=== PATIENT | female | born 1985 | race Caucasian/White ===

== ENCOUNTER 2025-01-13 19:30 | Emergency (ER) | payer MEDICAID ==
[~2025-01-13] VITALS: Ht 160 cm; Wt 56.8 kg
[2025-01-13 19:54] VITALS: BP 128/100; PULSE 90; RESP 16; O2SAT 97
[2025-01-13 22:17] LABS: MEAN PLATELET VOLUME 7.6 FL (7.4-10.4); RED CELL DISTRIBUTION WIDTH 12.7 % (11.5-14.5)
[2025-01-13 22:32] LABS: CREATININE 0.64 MG/DL (0.40-0.90); TOTAL CARBON DIOXIDE 28.3 MMOL/L (24-32); eCRCL 97 ML/MIN; eGFR > 90 ML/MIN
[2025-01-13 23:26] LABS: LEUKOCYTE ESTERASE ,URINE NEGATIVE (Neg); NITRITES, URINE NEGATIVE (Neg); OCCULT BLOOD,URINE NEGATIVE (Neg)
--- NOTE | 2025-01-13 23:31 | Physician Documentation ---
History of Present Illness ~ General Chief Complaint: Multiple Medical Complaints Stated Complaint: FLANK PAIN Time Seen by MD: 21:51 History of Present Illness Initial Comments This is a 39-year-old female who presents with multiple vague concerns primarily reporting feeling off describing anxiety about her health, difficulty focusing, and episodes of nausea. Reports these symptoms has been bothering her more the last week. Patient additionally reports she has had pain to her right flank for the past year and describes the pain as deep. Patient reports no shortness of breath, chest pain, or abdominal pain. Patient reports no other acute symptoms or concerns. Medication Reconciliation Allergies: Coded Allergies: No Known Allergies (Unverified , 01/13/25) Scheduled Celecoxib* (Celebrex*), 1 CAP PO Q12H Hydroxyzine Hcl (Atarax), 1 TAB PO Q8H Scheduled PRN ONDANSETRON ODT 4mg tablet (Ondansetron Odt), 1 TAB PO Q6H PRN PRN for nausea/vomiting Past Medical History Past Medical History: No Pertinent History Review of Systems ROS As stated above in the HPI, otherwise all systems are reviewed and negative. Physical Exam Physical Exam Vital Signs: Temperature: 98.2, Source: Oral, Heart Rate: 90, Respiratory Rate: 16, BP: 128/100, Pulse Oximetry: 97, Weight: 56.820 Oxygen Flow Rate: 0 Physical Exam VITALS: Reviewed and as above. GENERAL: Alert, nontoxic appearing, no apparent distress. HEENT: PERRLA, EOMI RESPIRATORY: No increased work of breathing, no respiratory distress, speaking in full clear sentences, clear lung sounds in all lisa CHEST: CV: Regular rate and rhythm no murmur BACK: Nontender to palpation, no CVA tenderness GI: Soft, nondistended, nontender, no rebound, no guarding, bowel sounds present SKIN: Warm and dry NEURO: GCS 15 Progress Results/Orders Results/Orders Completed Orders - JASWINDER MONTGOMERY Cbc/Diff (01/13/25 21:52) BMP (01/13/25 21:52) Urinalysis, Cult If Indicated (01/13/25 21:52) Hydroxyzine Tablet (Atarax Tablet) (01/14/25 00:20) Naproxen Tablet (Naprosyn Tablet) (01/14/25 00:20) Medications Received in ER Medications (Trade) Dose Ordered Sig/Daya Route PRN Reason Start Time Stop Time Status Last Admin Dose Admin (Atarax tablet) 25 mg ONCE ONCE PO 01/14/25 00:20 01/14/25 00:21 DC 01/14/25 00:25 25 MG (Naprosyn tablet) 500 mg ONCE ONCE PO 01/14/25 00:20 01/14/25 00:21 DC 01/14/25 00:25 500 MG Vital Signs 01/13/25 01/14/25 19:54 00:09 Temp 98.2 98.2 Pulse 90 Resp 16 B/P (MAP) 128/100 Pulse Ox 97 O2 Flow Rate 0 Laboratory Tests Test 01/13/25 22:04 01/13/25 22:15 White Blood Count 6.8 Red Blood Count 4.33 Hemoglobin 13.2 Hematocrit 38.9 Mean Corpuscular Volume 89.9 Mean Corpuscular Hemoglobin 30.4 Mean Corpuscular Hemoglobin Concent 33.8 Red Cell Distribution Width 12.7 Platelet Count 257 Mean Platelet Volume 7.6 Neutrophils (%) (Auto) 66.1 Lymphocytes (%) (Auto) 26.2 Monocytes (%) (Auto) 5.7 Eosinophils (%) (Auto) 1.3 Basophils (%) (Auto) 0.7 Neutrophils # (Auto) 4.5 Lymphocytes # (Auto) 1.8 Monocytes # (Auto) 0.4 Eosinophils # (Auto) 0.1 Basophils # (Auto) 0.0 CBC Comment Sodium Level 139 Potassium Level 4.1 Chloride Level 104 Carbon Dioxide Level 28.3 Anion Gap 7 L Blood Urea Nitrogen 16 Creatinine 0.64 Estimated GFR/1.73 m2 > 90 BUN/Creatinine Ratio 25.0 H Glucose Level 93 Calcium Level 8.9 Albumin 4.1 Chemistry Comments Urine Specimen Description Cln catch midstream Urine Color Yellow Urine Clarity Clear Urine pH 7.0 Urine Specific [place] 1.010 Urine Protein Negative Urine Glucose (UA) Negative Urine Ketones Negative Urine Occult Blood Negative Urine Nitrite Negative Urine Bilirubin Negative Urine Urobilinogen 0.2 Urine Leukocyte Esterase Negative Urine Culture Indicated Not ind Volume Urine Centrifuged 10 ml Urine Comment Medical Decision Making Additional information obtaine: N/A Findings This otherwise well 39-year-old female presented with multiple vague concerns that appear to been present for some time including a feeling of difficulty focusing, anxiety about health, and episodes of nausea along with one year of right flank pain described as deep. Patient's physical exam was benign in lab work did not demonstrate significant abnormalities to suggest a acute medical emergency. At a lengthy conversation patient about follow up with primary care provider for further workup of symptoms with the possibility of endocrine disorder or mental health disorder. All possible differentials have not been ruled out and patient is mid made aware that she must follow up with primary care provider for further workup. Patient is otherwise well-appearing, h emodynamically stable and appropriate for outpatient follow up. Patient provided careful return to care precautions, follow up instructions, and home care instructions which he verbalized understanding of. Differential Diagnosis Anxiety, pyelonephritis, urinary tract infection, electrolyte abnormality, hyperthyroid, hypothyroid, hypoglycemia, hyperglycemia, diabetes, malignancy, nephrolithiasis, urolithiasis Departure Time of Disposition: 23:53 Disposition: HOME / SELF CARE / HOMELESS Impression: Primary Impression: Anxiety about health Additional Impressions: Nausea Arthritis pain Condition: Improved Discharge Instructions: Managing Anxiety, Adult Additional Instructions: Please follow up with her primary care provider about your symptoms. Your lab work and physical exam was reassuring tonight. Please follow up with your primary care provider in the next few days. Please return to the emergency department for any new or worsening concerning symptoms. Please take medications as prescribed. Prescriptions ONDANSETRON ODT 4mg tablet (ONDANSETRON ODT) 4 Mg Tab.rapdis 1 TAB PO Q6H PRN PRN for nausea/vomiting for 4 Days, #16 TAB 0 Refills Prov: JASWINDER MONTGOMERY 01/13/25 Hydroxyzine Hcl (Atarax) 25 Mg Tablet 1 TAB PO Q8H for anxiety for 10 Days, #30 TAB 0 Refills Prov: JASWINDER MONTGOMERY 01/13/25 Celecoxib* (Celebrex*) 100 Mg Capsule 1 CAP PO Q12H for arthritis for 30 Days, #60 CAP Prov: JASWINDER MONTGOMERY 01/13/25 Education Educated: Patient Educated regarding: diagnosis, treatment, prognosis, need for follow up Signature Scribe Signature: No scribe Attestation: The note accurately reflects work and decisions made by me.GORGE Bhandari 01/14/25 01:09 Parts of this note were created using [employer] voice recognition software program. While efforts were made to correct any mistakes made by this voice recognition software program, nonsensical phrases may remain in this note. In addition, there may be errors and syntax, grammar, content and spelling. JASWINDER MONTGOMERYP Jan 13, 2025 23:31
[2025-01-13 23:36] LABS: UA COLLECTION TYPE CLN CATCH MIDSTREAM
[2025-01-13] MEDS ORDERED: CELE-193 PO (23:53)
[2025-01-13] MEDS ORDERED: ONDA-243 PO (23:53)
[2025-01-13] MEDS ORDERED: HYDR-3686 PO (23:53)
[2025-01-14 00:09] VITALS: TEMP 98.2
== END 2025-01-14 00:26 | disposition home or self-care (01) ==
LOC: ER 23:55
DX: F41.9 Anxiety disorder, unspecified (principal); M19.90 Unspecified osteoarthritis, unspecified site; R11.0 Nausea; Z79.899 Other long term (current) drug therapy
CPT/HCPCS: 36415; 80048; 81003; 85025; 99283; Q0177